=== PATIENT | male | born 1950 | race African-American/Black ===

== ENCOUNTER 2017-05-02 11:23 | Observation (INO) | payer OTHER ==
--- NOTE | 2017-05-01 12:20 | History and Physical ---
History & Physical Date May 01, 2017. Chief Complaint Enlarging right thyroid mass History of Present Illness The patient is a 67 year old male with complaints of progressively enlarging right thyroid mass to present 6 x 8 cm. 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 Additional History Hepatic Disease: No Endocrine Disorder: No Kidney Disease: No Hypertension: No Heart Disease: No Bleeding Tendencies: No Infectious Diseases: No Physical Examination Skin: warm/dry, no rash Eyes: normal inspection, EOMI, sclerae normal ENT: normal ENT inspection, pharynx normal Head: normocephalic, atraumatic Neck: + pertinent finding (large right thyroid mass of 6 x 8 cm) Respiratory/Chest: lungs clear, normal breath sounds, no respiratory distress Cardiovascular: regular rate, rhythm, no edema, no murmur Abdomen / GI: normal bowel sounds, non tender Back: normal inspection Extremities: normal inspection, normal range of motion Neurologic/Psych: no motor/sensory deficits, alert, normal reflexes, oriented x 3 Diagnosis Right thyroid mass Plan of Treatment Right thyroid lobectomy with isthmusectomy and frozen section with possible total thyroidectomy. The risks and implications including injury to the parathyroid gland and to the recurrent laryngeal nerve and to the vessels were explained to the patient, he understands these risk and other risks and desires to proceed with surgery thank you
[~2017-05-02] VITALS: Ht 175.3 cm; Wt 74.0 kg
[~2017-05-02 11:23] MED LIST: CEFAZOLIN 1000MG/55 ML D5W 55 ML IV SCH; CEFAZOLIN IV 2,000 MG/60 ML D5W IV SCH; LACTATED RINGER'S 1000ML 1,000 ML IV SCH
[2017-05-02] MEDS ORDERED: MIDAZOLAM HCL 1 MG/ML 2ML VIAL ONE (11:34)
[2017-05-02] MEDS ORDERED: ROCURONIUM BROMIDE 10 MG/ML 5 ML VIAL ONE (11:34)
[2017-05-02] MEDS ORDERED: DEXAMETHASONE SOD INJ 4 MG/ML VIAL ONE (11:34)
[2017-05-02] MEDS ORDERED: FENTANYL CITRATE INJ 50 MCG/1 ML 2 ML VIAL ONE (11:34)
[2017-05-02] MEDS ORDERED: ONDANSETRON INJ 2 MG/ML 2 ML VIAL ONE (11:34)
[2017-05-02] MEDS ORDERED: GLYCOPYRROLATE INJ 0.2 MG/ML VIAL ONE (11:34)
[2017-05-02] MEDS ORDERED: LIDOCAINE HCL 2% 2 ML VIAL (20MG/ML) ONE (11:34)
[2017-05-02] MEDS ORDERED: NEOSTIGMINE METHYLSULFATE 5 MG/5 ML SYR ONE (11:34)
[2017-05-02] MEDS ORDERED: PROPOFOL IV EMULSION 10 MG/ML 20 ML VIAL IV ONE (11:34)
[2017-05-02 11:39] VITALS: Ht 175.3 cm; Wt 74.0 kg
[2017-05-02] MEDS ORDERED: ATOR-24 PO (11:57)
[2017-05-02] MEDS ORDERED: TAMS0.4C38 PO (11:57)
[2017-05-02] MEDS ORDERED: ASPCH81X PO (11:57)
[2017-05-02] MEDS ORDERED: HYDROmorphone INJ 2 MG/ML SYR/VIAL IV PRN (12:30)
[2017-05-02] MEDS ORDERED: ONDANSETRON INJ 2 MG/ML 2 ML VIAL IV PRN ×2 (12:30→14:45)
[2017-05-02] MEDS ORDERED: KETOROLAC TROMETHAMINE 30 MG/ML VIAL IV. PRN (12:30)
[2017-05-02] MEDS ORDERED: ATROPINE SULFATE 0.1 MG/ML 5ML SYR IV PRN (12:30)
--- NOTE | 2017-05-02 12:30 | History & Physical Bridge Note ---
H&P Re-Evaluation Bridge Note: I have examined the patient, reviewed the History & Physical and in the interval since the performance of the History & Physical I have noted the following changes of clinical significance: No changes noted
[2017-05-02] MEDS ORDERED: BACITRACIN OINT 15 GM TUBE ONE (12:40)
[2017-05-02] MEDS ORDERED: LIDO 2%/EPINEPHRINE 1:100000 20 ML VIAL INFIL ONE (12:41)
[2017-05-02] MEDS ORDERED: EpHEDrine SULFATE 50MG/5ML SYR ONE (13:10)
[2017-05-02] MEDS ORDERED: LACTATED RINGER'S 1000ML 1,000 ML IV SCH (14:39)
[2017-05-02] MEDS ORDERED: OXYCODONE/ACETAMINOPHEN 5-325 TAB PO PRN (14:45)
--- NOTE | 2017-05-02 14:52 | [facility] Operative Report ---
Operative Report Operative Date May 02, 2017. Pre-Operative Diagnosis Right thyroid mass Post-Operative Diagnosis Right thyroid mass Procedure(s) Performed Right Thyroid Lobectomy and isthmusectomy Surgeon Bon[employer] Interpreter Surgeon(s) none Estimated Blood Loss 50cc Findings 8 cm centimeter right thyroid nodule and lobe. Specimens 1: Right thyroid lobe [place] Anesthesia Gen. endotracheal Complication(s) None Disposition Recovery Room / PACU Indications 67-year-old gentleman with a progressively enlarging right thyroid mass now reaching 8 cm needle biopsy showed Hurthle cells but could not rule out carcinoma Description of Procedure The patient was brought to the operating room placed in the supine position the neck was hyper-extended with the shoulder pillow. He was prepped with ChloraPrep and draped in the usual sterile manner for thyroidectomy. The incision with a routine thyroid incision. The incision line was injected with 2 % Xylocaine with 1 100,000 strength epinephrine. The incision was made using the #15 blade carried down through the skin and subcutaneous layer and then the platysma layer and then elevating the superior and inferior flaps in the subplatysmal layer. Midline dissection was performed the there are no clinoid and the sternohyoid muscles in the midline isolating the right lobe of the thyroid gland sharp dissection was performed around the thyroid a first dissecting around the superior pole freeing up the superior left thyroidal artery and the superior thyroidal veins preserving the superior thyroidal nerve. Middle thyroidal vein was encountered and controlled with the bipolar cautery and divided inferiorly the branches of the recurrent laryngeal nerve were identified going into the tracheoesophageal groove below the cricothyroid areas. The inferior thyroidal artery was found coursing below the recurrent laryngeal nerve this was followed to the thyroid gland preserving the major artery clamping and dividing the branches as it entered into the thyroid gland and controlling these vessels with bipolar cautery and with 2-0 silk ties. The suspensory ligament was then divided above the recurrent laryngeal nerve visualizing the recurrent laryngeal nerve that during the entire procedure and then the thyroid gland along with the 8 cm nodule from the right side of the trachea. In this manner the right lobe and isthmus was removed and sent for frozen section. Frozen section or showed follicular neoplasm without evidence of carcinoma favoring follicular adenoma. Therefore hemostasis was controlled using silk ties using the bipolar cautery and using the Bovie. The incision was then closed in layers with interrupted 3-0 Vicryl sutures on the platysma layer and then interrupted 4-0 Vicryl's on the subcutaneous subcutaneous layer and then skin alta on the skin a Eris drain was placed in to the right side of the trachea and sewn in place with a 2-0 silk suture. A light dressing was placed over the incision with bacitracin and 4 x 4 and Lusi the patient tolerated procedure well and was taken to recovery area in satisfactory condition. Thank you I attest to the content of the Intraoperative Record and any orders documented therein. Any exceptions are noted below.
[2017-05-02] MEDS ORDERED: MoRPHine SULFATE 4 MG/ML 1 ML CARP\\VIAL IV PRN (15:30)
[2017-05-02 15:40] VITALS: BP 138/78; PULSE 63; TEMP 36.6; O2SAT 100
--- NOTE | 2017-05-02 15:46 | Anesthesiology Progress Note ---
Anesthesia Post Op Note Date & Time May 02, 2017 at 15:45 Vital Signs Pain Intensity: 0 Vital Signs Past 12 Hours Date Time Temp Pulse Resp B/P (MAP) Pulse Ox O2 Delivery O2 Flow Rate FiO2 05/02/17 15:25 36.1 65 16 138/74 100 Nasal Cannula 2 05/02/17 15:15 36.1 61 16 131/76 100 Nasal Cannula 2 05/02/17 15:05 59 16 131/78 100 Oxymask 10 05/02/17 14:55 62 16 132/77 100 Oxymask 10 05/02/17 14:48 36.0 63 16 125/77 100 Oxymask 10 Notes Mental Status: alert / awake / arousable, participated in evaluation Pt Amnestic to Procedure: Yes Nausea / Vomiting: adequately controlled Pain: adequately controlled Airway Patency, RR, SpO2: stable & adequate BP & HR: stable & adequate Hydration State: stable & adequate Anesthetic Complications: no major complications apparent
[2017-05-02] MEDS ORDERED: IV FLUIDS COMPLETED PRN (16:00)
[2017-05-02 16:10] VITALS: BP 145/85; PULSE 71; TEMP 36.6; O2SAT 100
[2017-05-02 16:40] VITALS: BP 153/89; PULSE 68; TEMP 36.6; O2SAT 100
[2017-05-02 17:05] LABS: CALCIUM 8.8 mg/dl (8.5-10.1); MAGNESIUM 2.4 mg/dl (1.8-2.4)
[2017-05-02 17:09] LABS: PHOSPHORUS 2.6 mg/dl (2.5-4.9)
[2017-05-02 17:39] VITALS: BP 157/92; PULSE 67; TEMP 36.4; O2SAT 100
[2017-05-02 19:00] VITALS: BP 139/88; PULSE 79; TEMP 36.5; O2SAT 94
[2017-05-02] MEDS ORDERED: NURSING VERBAL MED ORDER ONE (22:15)
[2017-05-02 23:05] VITALS: BP 132/80; PULSE 83; TEMP 36.8; O2SAT 94
[2017-05-03] MEDS ORDERED: SULF800T23 PO (01:00)
[2017-05-03 03:15] VITALS: BP 126/79; PULSE 75; TEMP 36.6; O2SAT 95
[2017-05-03 07:29] VITALS: BP 132/82; PULSE 66; TEMP 36.6; O2SAT 95
[2017-05-03] MEDS ORDERED: PNEUMOCOCCAL POLYSACCHARIDES 25 MCG/0.5 ML VIAL/SYR IM. ONE (08:00)
[2017-05-03] MEDS ORDERED: PNEUMOCOCCAL ADMINISTRATION CHARGE ONE (08:00)
[2017-05-03] MEDS ORDERED: CEPH500C2 PO (10:12)
[2017-05-03] MEDS ORDERED: OXYC-57 PO (10:12)
--- NOTE | 2017-05-03 10:18 | Discharge Instructions ---
Discharge Instructions Date of Service May 03, 2017. Admission Reason for Admission: Right Thyroid Mass Discharge Discharge Diagnosis / Problem: same Discharge Goals Goal(s): Diagnostic testing Activity Recommendations Activity Limitations: per Instructions/Follow-up section . Instructions / Follow-Up Instructions / Follow-Up ACTIVITY: [facility] danny drain Friday if bleeding has diminished. Call me if still bleeding Please remove alta/suture in 10 days. Recheck thyroid functions is 6 weeks, consult Endocrinology if abnormal. Frozen showed benign follicular adenoma. If this changes, he will need to be reevaluated for further Rx. Most patients are able to return to a full-time work schedule in 1 week; however this may vary according to your job. It may take longer to return to heavy physical or other demanding work, or shorter if you are feeling well. Do NOT drive a car until you are able to turn the neck side to side, which may take 1-[address] you are taking pain medicines. DIET: You may have temporary throat discomfort or difficulty swallowing. This is due to the surgery around your larynx (voice box) and esophagus (swallowing tube). These symptoms will gradually improve over the course of several weeks. Drink and eat foods that can be swallowed easily, e.g. juice, soup, gelatin, applesauce, scrambled eggs or mashed potatoes. You may be able to return to your usual diet in a couple of days. INCISION CARE: You may shower 24 hours after surgery but please do not swim or soak in a tub for at least 2 weeks. After you are done showering, just pat your incision dry. If it is draining clear fluid, you can cover it with a dry dressing (such as gauze). Do NOT scrub with soap or washcloth for the first 10 days. Mild swelling at the incision site will go away in 4-6 weeks. The pink line will slowly fade to white during the next 6-12 months. Use a sunscreen (SPF#30 or higher) or wear a scarf for protection if in the sun for the first 6 months to a year as the sun can darken your scar. You may begin to use a hypoallergenic moisturizing cream (no vitamin E, Mederma , or other scar creams) along the incision after 2 weeks. COMMON PROBLEMS: Numbness of the skin under the chin or above the incision is normal and should go away in a few weeks. You may feel a lump or pressure in your throat sensation when swallowing for a few days. Your incision may feel itchy while it heals. Avoid rubbing or scratching if possible. You may feel neck stiffness, tightness or a pulling feeling. Some people prefer to sleep with an extra pillow for the first few days after the surgery, this helps keep swelling around your incision to a minimum. Your voice may be hoarse or weak. Pitch or tone may change. You may have difficulty singing. This usually goes back to normal over 6 weeks to 6 months. After surgery, you may notice a change in your mood, emotional ups and downs, depression, irritability or fatigue and weakness. These changes will get better as time passes. You do not need to be at bed rest, being active is normally well tolerated within reason. CALL YOUR DOCTOR IF: For any non-urgent questions, call Dr. Galaviz office [phone] or the nursing unit where you were a patient. Call Dr. Crystal [phone] or go to the Emergency Room if you have fever ( temperature greater than 100.5), chills, lightheadedness, shortness of breath, difficulty breathing, nausea, vomiting, numbness or tingling in your fingers, hands, or mouth, muscle spasms, or if you notice signs of wound infection ( redness, tenderness, or drainage from the incision). Please also call or go to the Emergency Room if you have any other urgent concerns. FOLLOW UP VISIT: Follow-up visit with Dr. Crystal. Please call to schedule if not already scheduled. Current Hospital Diet Patient's current hospital diet: Regular Diet Discharge Diet Recommended Diet: Regular Diet Procedures Procedures Performed: Right Thyroid Lobectomy and isthmusectomy Pending Studies Studies pending at discharge: no Medical Emergencies . Who to Call and When: Medical Emergencies: If at any time you feel your situation is an emergency, please call [phone] immediately. . Non-Emergent Contact Non-Emergency issues call your: Primary Care Provider . "Provider Documentation" section prepared by Rubia Crystal. . VTE Core Measure Inpt VTE Proph given/why not?: SCD's, Treatment not indicated [place] Drug Monitoring Program Search Results: no issues identified
--- NOTE | 2017-05-03 10:22 | Discharge Summary ---
Discharge Summary Date of Service May 03, 2017. Admission Date/Reason May 02, 2017 at 14:44 Right Thyroid Mass. 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 Hospital Course Right thyroidectomy performed without complications. Discharge Instructions Please refer to the electronic Patient Visit Report (Discharge Instructions) for additional information. Additional Copies To Ashley Hartmann M.D.
[2017-05-03 10:30] VITALS: BP 132/82; PULSE 66; TEMP 36.6; O2SAT 95
[2017-06-26] MEDS ORDERED: DOCU-94 PO (14:58)
== END 2017-05-03 11:34 | disposition home or self-care (01) ==
LOC: C.ACU 11:23 → C.MSW 14:44 → ENRESERV 15:21
PROVIDERS: ADMIT Otolaryngology; ATTEND Otolaryngology
DX: D34 Benign neoplasm of thyroid gland (principal); Z79.82 Long term (current) use of aspirin; Z79.899 Other long term (current) drug therapy

== ENCOUNTER 2017-05-07 00:04 | Emergency (ER) | payer OTHER ==
[~2017-05-07] VITALS: Ht 175.3 cm; Wt 72.2 kg
[~2017-05-07 00:04] MED LIST changes: +ASPCH81X PO; +ATOR-24 PO; -CEFAZOLIN 1000MG/55 ML D5W 55 ML IV SCH; -CEFAZOLIN IV 2,000 MG/60 ML D5W IV SCH; +CEPH500C2 PO; -LACTATED RINGER'S 1000ML 1,000 ML IV SCH; +OXYC-57 PO; +SULF800T23 PO; +TAMS0.4C38 PO
[2017-05-07 00:18] VITALS: TEMP 36.8; Ht 175.3 cm; Wt 72.2 kg
[2017-05-07] MEDS ORDERED: ACET-749 PO (01:00)
[2017-05-07 01:12] LABS: URINE APPEARANCE CLEAR (CLEAR); URINE BILIRUBIN NEG (NEG); URINE COLOR YELLOW; URINE NITRITE NEG (NEG); URINE SPECIFIC GRAVITY 1.008 (1.000-1.030); UROBILINOGEN NEG (NEG); ZZURINE CULT IF INDIC CATH NO
[2017-05-07 01:28] LABS: MANUAL MICROSCOPIC REQUIRED? NO; REVIEW REQ? NO
[2017-05-07 01:52] VITALS: BP 124/79; PULSE 82; O2SAT 98
--- NOTE | 2017-05-07 02:00 | EMERGENCY ROOM VISIT NOTE ---
History First contact with patient: 00:41 Chief Complaint: URINARY SYMPTOMS Stated Complaint: BLOOD IN URINE History of Present Illness The patient is a 67 year old male who presents to the Emergency Room with complaints of difficulty with Urrutia draining that is now resolved that currently has a little bit of blood in it. Patient states he has no current medical complaints and [facility]. He does not have a urologist. He had thyroid surgery last week for a mass that was removed. He had urinary retention from this and a Urrutia catheter was placed then removed and then replaced as he had retention again. Patient denies chest pain, dyspnea , abdominal pain, penile pain, testicular pain, back pain or any other medical concerns. Review of Systems See HPI for pertinent positives & negatives. A total of 10 systems reviewed and were otherwise negative. Past Medical/Surgical History Medical Problems: (1) Thyroid adenoma Social History Smoking Status: Never Smoker Current/Historical Medications Scheduled Aspirin (Aspirin Chewable), 81 MG PO DAILY Atorvastatin (Lipitor), 40 MG PO HS Sulfa/Trimethoprim (Bactrim Ds 800MG/160MG), 1 TAB PO BID Tamsulosin Hcl (Flomax), 0.4 MG PO DAILY Scheduled PRN Acetaminophen/Codeine (Tylenol W/Codeine #3), 2 TAB PO QID PRN for Pain Allergies Coded Allergies: No Known Allergies (Unverified , 05/07/17) PER PRE ANESTHESIA QUESTIONNAIRE Physical Exam Vital Signs Date Time Temp Pulse Resp B/P (MAP) Pulse Ox O2 Delivery O2 Flow Rate FiO2 05/07/17 01:52 82 20 124/79 98 05/07/17 00:18 36.8 71 19 114/81 95 Room Air Pain Rating (0-10): 0 Physical Exam VITALS: Vitals are noted on the nurse's note and reviewed by myself. Vital signs stable. GENERAL: Pleasant male, in no acute distress, nondiaphoretic, well-developed well-nourished. SKIN: Capillary reflex less than 2 seconds. HEENT: Normocephalic. PERRLA. EOMI. Nares patent. Mucous membranes moist. Neck is supple without nuchal rigidity. HEART: Regular rate and rhythm without murmurs gallops or rubs. LUNGS: Clear to auscultation bilaterally without wheezes, rales or rhonchi. No retractions or accessory muscle use. ABDOMEN: Positive bowel sounds x 4. Normal tympanic percussion. Soft, nontender, without masses or organomegaly. Hernandez sign negative. No guarding or rebound tenderness. No CVA tenderness Exam: Urrutia catheter draining without difficulties. MUSCULOSKELETAL: No gross musculoskeletal defects. No pedal edema. NEURO: Patient was alert and oriented to person place and time. Normal sensation to light and sharp touch. No focal neurological deficits. Medical Decision & Procedures Laboratory Results Test 05/07/17 00:37 Urine Color YELLOW Urine Appearance CLEAR (CLEAR) Urine pH 6.0 (4.5-7.5) Urine Specific [place] 1.008 (1.000-1.030) Urine Protein 2+ (NEG) Urine Glucose (UA) NEG (NEG) Urine Ketones NEG (NEG) Urine Occult Blood 3+ (NEG) Urine Nitrite NEG (NEG) Urine Bilirubin NEG (NEG) Urine Urobilinogen NEG (NEG) Urine Leukocyte Esterase TRACE (NEG) Urine WBC (Auto) 1-5 /hpf (0-5) Urine RBC (Auto) >30 /hpf (0-4) Urine Hyaline Casts (Auto) 1-5 /lpf (0-5) Urine Epithelial Cells (Auto) 5-10 /lpf (0-5) Urine Bacteria (Auto) NEG (NEG) ED Course Prior records reviewed and summarized as above. Triage Nursing notes reviewed. Additional history obtained from correction officers. The patient's history was concerning for problems with Urrutia catheter Differential diagnosis: Etiologies such as Urrutia catheter complication, bladder polyp, urinary retention, UTI, renal colic as well as others were entertained.. Physical examination: As above ER treatment provided: Patient was observed On reassessment the patient felt better. Diagnostics interpreted by me: The labs revealed hematuria Bladder scan showed 74 mL's per nursing This appears to be isolated hematuria most likely from Urrutia catheter was recently placed today. Patient had no complaints and requested to leave. I felt this is reasonable. He is advised to follow-up urology for his urinary retention and his enlarged prostate and hematuria. [facility] was advised to the [facility] doctor for this and was given a referral to Urology rn radiation. He was advised to return to the ER immediately for problems with Urrutia catheter, fevers , pain, worsening signs or symptoms or as needed. By the evaluation outlined above emergent etiologies such as urinary obstruction , UTI, as well as others were deemed relatively unlikely. The pt informed about the findings as listed above. All questions were answered and pleased with the treatment. Return instructions were outlined and the patient was discharged in stable condition. Referral: The patient was referred back to urology and primary care physician for follow- up in 2 to 3 days for a recheck of the current condition. Medical Decision As above Impression Primary Impression: Hematuria Departure Information Dispostion Home / Self-Care Condition GOOD Referrals Delbert Talley M.D. Forms HOME CARE DOCUMENTATION FORM, IMPORTANT VISIT INFORMATION Patient Instructions [facility] Additional Instructions Follow-up with urology for Urrutia catheter and for blood in urine. See the [facility] doctor for the referral to the urologist. Return to ER sooner for heavy bleeding, problems with Urrutia catheter, pain, worsening signs or symptoms or as needed. Problem Qualifiers Primary Impression: Hematuria Hematuria type: unspecified type Qualified Codes: R31.9 - Hematuria, unspecified
[2017-06-26] MEDS ORDERED: DOCU-94 PO (14:58)
[2017-06-28] MEDS ORDERED: OXYC-57 PO (09:04)
[2017-06-28] MEDS ORDERED: CEPH500C2 PO (09:04)
== END 2017-05-07 01:53 | disposition home or self-care (01) ==
LOC: C.EDB 00:05 → C.EDC 01:53
DX: R31.9 Hematuria, unspecified (principal); Z86.018 Personal history of other benign neoplasm; Z79.82 Long term (current) use of aspirin; Z79.899 Other long term (current) drug therapy

== ENCOUNTER 2017-06-27 05:32 | Observation (INO) | payer OTHER ==
[2017-06-26 14:43] VITALS: BMI 23.0
[~2017-06-27] VITALS: Ht 175.3 cm; Wt 71.4 kg
[2017-06-27] VITALS (12 sets, daily range): BP systolic 136–168; BP diastolic 76–93; PULSE 57–76; TEMP 36.4–37.1; O2SAT 94–98; Ht 175.3 cm; Wt 71.4 kg
[~2017-06-27 05:32] MED LIST changes: -CEPH500C2 PO; +DOCU-94 PO; -OXYC-57 PO; -SULF800T23 PO
[2017-06-27] MEDS ORDERED: LACTATED RINGER'S 1000ML 1,000 ML IV SCH ×2 (06:00→10:36)
[2017-06-27] MEDS ORDERED: FENTANYL CITRATE INJ 50 MCG/1 ML 2 ML VIAL ONE (06:58)
[2017-06-27] MEDS ORDERED: MIDAZOLAM HCL 1 MG/ML 2ML VIAL ONE (06:58)
[2017-06-27] MEDS ORDERED: LARYING-O-JET KIT (LTA) ONE ×2 (06:59)
[2017-06-27] MEDS ORDERED: LIDOCAINE HCL 2% 2 ML VIAL (20MG/ML) ONE (06:59)
[2017-06-27] MEDS ORDERED: CISATRACURIUM BESYLATE IV SOLN 2 MG/ML 10 ML VIAL ONE (06:59)
[2017-06-27] MEDS ORDERED: PROPOFOL IV EMULSION 10 MG/ML 20 ML VIAL IV ONE (06:59)
[2017-06-27] MEDS ORDERED: DEXAMETHASONE SOD INJ 4 MG/ML VIAL ONE (06:59)
[2017-06-27] MEDS ORDERED: NEOSTIGMINE METHYLSULFATE 5 MG/5 ML SYR ONE (06:59)
[2017-06-27] MEDS ORDERED: ONDANSETRON INJ 2 MG/ML 2 ML VIAL ONE (06:59)
[2017-06-27] MEDS ORDERED: GLYCOPYRROLATE INJ 0.2 MG/ML VIAL ONE (06:59)
[2017-06-27] MEDS ORDERED: BACITRACIN OINT 15 GM TUBE ONE (07:01)
[2017-06-27] MEDS ORDERED: LIDO 2%/EPINEPHRINE 1:100000 20 ML VIAL INFIL ONE (07:01)
--- NOTE | 2017-06-27 07:10 | History and Physical ---
History & Physical Date Jun 27, 2017. 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 Additional History Hepatic Disease: No Endocrine Disorder: Yes Kidney Disease: No Hypertension: No Heart Disease: No Bleeding Tendencies: No Infectious Diseases: No Allergies Coded Allergies: No Known Allergies (Unverified , 06/27/17) PER PRE ANESTHESIA QUESTIONNAIRE Home Medications Scheduled Aspirin (Aspirin Chewable), 81 MG PO QAM Atorvastatin (Lipitor), 40 MG PO HS Docusate Sodium (Colace), 1 CAP PO TID Tamsulosin Hcl (Flomax), 0.4 MG PO HS Physical Examination Skin: warm/dry, no rash Eyes: normal inspection, EOMI, sclerae normal ENT: normal ENT inspection, pharynx normal Head: normocephalic, atraumatic Neck: supple, no adenopathy, trachea midline Respiratory/Chest: lungs clear, normal breath sounds, no respiratory distress Cardiovascular: regular rate, rhythm, no edema, no murmur Abdomen / GI: normal bowel sounds, non tender Back: normal inspection Extremities: normal inspection, normal range of motion Neurologic/Psych: no motor/sensory deficits, alert, normal reflexes, oriented x 3 Diagnosis follicular Carcinoma of thyroid, right lobe Plan of Treatment completion thyroid dectomy,
[2017-06-27] MEDS: CEFAZOLIN 1000MG/55 ML D5W IV SCH ×2 (07:34→09:55)
[2017-06-27] MEDS ORDERED: EpHEDrine SULFATE 50MG/5ML SYR ONE (08:11)
[2017-06-27] MEDS ORDERED: LABETALOL HCL IV 5 MG/ML 20ML IV PRN (09:15)
[2017-06-27] MEDS ORDERED: PROMETHAZINE HCL INJ 12.5 MG in SODIUM CHLORIDE 0.9% 50ML 50 ML IV PRN (09:15)
[2017-06-27] MEDS ORDERED: ATROPINE SULFATE 0.1 MG/ML 5ML SYR IV PRN (09:15)
[2017-06-27] MEDS ORDERED: FLUMAZENIL 0.1 MG/1 ML 10 ML VIAL IV PRN (09:15)
[2017-06-27] MEDS ORDERED: HYDROmorphone INJ 1 MG/ML SYR IV PRN (09:15)
[2017-06-27] MEDS ORDERED: EpHEDrine SULFATE INJ 50 MG/ML AMP IV PRN (09:15)
[2017-06-27] MEDS ORDERED: ONDANSETRON INJ 2 MG/ML 2 ML VIAL IV PRN ×2 (09:15→10:45)
[2017-06-27] MEDS ORDERED: NALOXONE HCL 0.4 MG/1 ML VIAL/CARP IV PRN (09:15)
[2017-06-27] MEDS ORDERED: ARISTA ABSORBABLE HEMOSTAT 3GM TOP ONE (09:45)
--- NOTE | 2017-06-27 10:36 | [facility] Operative Report ---
Operative Report Operative Date Jun 27, 2017. Pre-Operative Diagnosis Follicular Carcinoma of thyroid, right lobe Post-Operative Diagnosis Same as preoperative diagnosis Procedure(s) Performed Total Thyroidectomy Surgeon Dr. Rubia Crystal Reliability Technicians Surgeon(s) None Estimated Blood Loss 50 mL Findings Small left lobe with no palpable adenopathy Specimens Permanent specimens A. Left thyroid lobe Drains Eris Anesthesia Gen. endotracheal Complication(s) None None Disposition Recovery Room / PACU Indications 67-year-old male with follicular carcinoma of the right lobe of the thyroid here for completion of total thyroidectomy Description of Procedure The patient was brought to the operating room and placed in the supine position he was prepped with ChloraPrep and draped in the usual sterile manner. The incision followed the previous thyroidectomy incision. This was injected with 1 % Xylocaine with 1 100,000 strength epinephrine. The incision was made using the #15 blade extending the incision to the left side carrying the incision down through the subcutaneous layer and through the scar tissue elevating superior and inferior flaps through the scar tissue over the sternocleidomastoid muscle and the midline strap muscles. Midline dissection was performed the strap muscles elevating the sternohyoid and sternothyroid on both sides finding no nodes on the right side that are palpable then turning to the left side of the neck for the completion thyroidectomy. The left lobe was elevated by dissecting the inferior pole isolating the inferior thyroidal artery which was clamped with right angle clamps divided and tied with silk ties the other inferior thyroidal vessels were controlled using the bipolar cautery. The middle thyroidal vein was also controlled using the bipolar cautery. Superior thyroidal vessels were clamped and divided with hemostats and divided and then tied with silk ties. The dissection was continued along the capsule of the thyroid reflecting the soft tissue along with the parathyroid glands and then finding the recurrent laryngeal nerve deep in the tracheal esophageal groove and then following this nerve superiorly until it entered the hypothyroid membrane area. At this point the suspensory ligament was divided protecting the nerve and the entire thyroid gland was removed and sent to pathology.. Further hemostasis was controlled using the bipolar cautery and also using silk ties for a small vessel just superior and inferior to the recurrent laryngeal nerve. The recurrent laryngeal nerve was noted to be intact at the end of the procedure as were the parathyroids. A medium Eris drain was placed. The strap muscles were approximated in the midline with a 3-0 Vicryl suture. The platysma layer was closed with interrupted 3-0 chromic sutures. The subcutaneous layer was closed with 3-0 chromic sutures. The skin was closed with skin alta. The Eris drain was sewn in place with a 2-0 nylon suture. A [place] dressing was placed. The patient her procedure well was taken to recovery area in satisfactory condition. I attest to the content of the Intraoperative Record and any orders documented therein. Any exceptions are noted below.
[2017-06-27] MEDS ORDERED: HYDROCODONE/ACETAMOPHEN 5/325MG TAB PO PRN (10:45)
--- NOTE | 2017-06-27 11:03 | Anesthesiology Progress Note ---
Anesthesia Post Op Note Date & Time Jun 27, 2017 at 11:03 Vital Signs Pain Intensity: 2 Vital Signs Past 12 Hours Date Time Temp Pulse Resp B/P (MAP) Pulse Ox O2 Delivery O2 Flow Rate FiO2 06/27/17 10:55 58 15 152/90 100 Nasal Cannula 2 06/27/17 10:45 62 12 145/85 100 Mask 10 06/27/17 10:35 63 13 147/85 100 Mask 10 06/27/17 10:27 36.5 63 12 129/79 100 Mask 10 06/27/17 05:45 36.8 59 18 163/90 (114) 95 Room Air Notes Mental Status: alert / awake / arousable, participated in evaluation Pt Amnestic to Procedure: Yes Nausea / Vomiting: adequately controlled Pain: adequately controlled Airway Patency, RR, SpO2: stable & adequate BP & HR: stable & adequate Hydration State: stable & adequate Anesthetic Complications: no major complications apparent
[2017-06-27 11:41] LABS: CALCIUM 8.5 mg/dl (8.5-10.1)
[2017-06-27 11:45] LABS: MAGNESIUM 2.1 mg/dl (1.8-2.4); PHOSPHORUS 2.9 mg/dl (2.5-4.9)
[2017-06-27] MEDS ORDERED: IV FLUIDS COMPLETED PRN (12:00)
[2017-06-27] MEDS ORDERED: NURSING VERBAL MED ORDER ONE ×2 (22:00→23:30)
[2017-06-28 03:48] VITALS: BP 147/84; PULSE 66; TEMP 36.4; O2SAT 94; O2SAT 97
[2017-06-28] MEDS ORDERED: CEFAZOLIN IV 1,000 MG in DEXTROSE 5% 50ML 50 ML IV SCH (06:00)
[2017-06-28 07:19] VITALS: BP 150/82; PULSE 59; TEMP 37; O2SAT 95
[2017-06-28 08:15] VITALS: O2SAT 95
[2017-06-28] MEDS ORDERED: TAMSULOSIN HCL 0.4 MG CAP PO SCH ×2 (09:00→21:00)
[2017-06-28] MEDS ORDERED: CEPH500C2 PO (09:04)
[2017-06-28] MEDS ORDERED: OXYC-57 PO (09:04)
--- NOTE | 2017-06-28 09:10 | Discharge Instructions ---
Discharge Instructions Date of Service Jun 28, 2017. Admission Reason for Admission: Follicular Carcinoma Discharge Discharge Diagnosis / Problem: same Discharge Goals Goal(s): Therapeutic intervention Activity Recommendations Activity Limitations: per Instructions/Follow-up section ACTIVITY: Most patients are able to return to a full-time work schedule in 1 week; however this may vary according to your job. It may take longer to return to heavy physical or other demanding work, or shorter if you are feeling well. Do NOT drive a car until you are able to turn the neck side to side, which may take 1-[address] you are taking pain medicines. DIET: You may have temporary throat discomfort or difficulty swallowing. This is due to the surgery around your larynx (voice box) and esophagus (swallowing tube). These symptoms will gradually improve over the course of several weeks. Drink and eat foods that can be swallowed easily, e.g. juice, soup, gelatin, applesauce, scrambled eggs or mashed potatoes. You may be able to return to your usual diet in a couple of days. INCISION CARE: You may shower 24 hours after surgery but please do not swim or soak in a tub for at least 2 weeks. After you are done showering, just pat your incision dry. If it is draining clear fluid, you can cover it with a dry dressing (such as gauze). Do NOT scrub with soap or washcloth for the first 10 days. Mild swelling at the incision site will go away in 4-6 weeks. The pink line will slowly fade to white during the next 6-12 months. Use a sunscreen (SPF#30 or higher) or wear a scarf for protection if in the sun for the first 6 months to a year as the sun can darken your scar. You may begin to use a hypoallergenic moisturizing cream (no vitamin E, Mederma , or other scar creams) along the incision after 2 weeks. COMMON PROBLEMS: Numbness of the skin under the chin or above the incision is normal and should go away in a few weeks. You may feel a lump or pressure in your throat sensation when swallowing for a few days. Your incision may feel itchy while it heals. Avoid rubbing or scratching if possible. You may feel neck stiffness, tightness or a pulling feeling. Some people prefer to sleep with an extra pillow for the first few days after the surgery, this helps keep swelling around your incision to a minimum. Your voice may be hoarse or weak. Pitch or tone may change. You may have difficulty singing. This usually goes back to normal over 6 weeks to 6 months. After surgery, you may notice a change in your mood, emotional ups and downs, depression, irritability or fatigue and weakness. These changes will get better as time passes. You do not need to be at bed rest, being active is normally well tolerated within reason. CALL YOUR DOCTOR IF: For any non-urgent questions, call Dr. Galaviz office [phone] or the nursing unit where you were a patient. Call Dr. Crystal [phone] or go to the Emergency Room if you have fever ( temperature greater than 100.5), chills, lightheadedness, shortness of breath, difficulty breathing, nausea, vomiting, numbness or tingling in your fingers, hands, or mouth, muscle spasms, or if you notice signs of wound infection ( redness, tenderness, or drainage from the incision). Please also call or go to the Emergency Room if you have any other urgent concerns. FOLLOW UP VISIT: Follow-up visit with Dr. Crystal. Please call to schedule if not already scheduled. . Instructions / Follow-Up Instructions / Follow-Up ACTIVITY: Most patients are able to return to a full-time work schedule in 1 week; however this may vary according to your job. It may take longer to return to heavy physical or other demanding work, or shorter if you are feeling well. Do NOT drive a car until you are able to turn the neck side to side, which may take 1-[address] you are taking pain medicines. DIET: You may have temporary throat discomfort or difficulty swallowing. This is due to the surgery around your larynx (voice box) and esophagus (swallowing tube). These symptoms will gradually improve over the course of several weeks. Drink and eat foods that can be swallowed easily, e.g. juice, soup, gelatin, applesauce, scrambled eggs or mashed potatoes. You may be able to return to your usual diet in a couple of days. INCISION CARE: You may shower 24 hours after surgery but please do not swim or soak in a tub for at least 2 weeks. After you are done showering, just pat your incision dry. If it is draining clear fluid, you can cover it with a dry dressing (such as gauze). Do NOT scrub with soap or washcloth for the first 10 days. Mild swelling at the incision site will go away in 4-6 weeks. The pink line will slowly fade to white during the next 6-12 months. Use a sunscreen (SPF#30 or higher) or wear a scarf for protection if in the sun for the first 6 months to a year as the sun can darken your scar. You may begin to use a hypoallergenic moisturizing cream (no vitamin E, Mederma , or other scar creams) along the incision after 2 weeks. COMMON PROBLEMS: Numbness of the skin under the chin or above the incision is normal and should go away in a few weeks. You may feel a lump or pressure in your throat sensation when swallowing for a few days. Your incision may feel itchy while it heals. Avoid rubbing or scratching if possible. You may feel neck stiffness, tightness or a pulling feeling. Some people prefer to sleep with an extra pillow for the first few days after the surgery, this helps keep swelling around your incision to a minimum. Your voice may be hoarse or weak. Pitch or tone may change. You may have difficulty singing. This usually goes back to normal over 6 weeks to 6 months. After surgery, you may notice a change in your mood, emotional ups and downs, depression, irritability or fatigue and weakness. These changes will get better as time passes. You do not need to be at bed rest, being active is normally well tolerated within reason. CALL YOUR DOCTOR IF: For any non-urgent questions, FOLLOW UP VISIT: please place in [facility] until drain is removed remove drain Friday or Friday depending on amount of drainage please remove alta in 10 days Please arrange for follow-up with me in 1 month please arrange for radiation therapy consult for radioactive iodine treatment for the follicular carcinoma with [id number] May restart thyroid hormone replacement after clearance from radiation therapy Follow-up visit with Dr. Crystal. Please call to schedule if not already scheduled. Current Hospital Diet Patient's current hospital diet: Regular Diet Discharge Diet Recommended Diet: Regular Diet Procedures Procedures Performed: Total Thyroidectomy Pending Studies Studies pending at discharge: yes List of pending studies: Pathology Medical Emergencies . Who to Call and When: Medical Emergencies: If at any time you feel your situation is an emergency, please call 911 immediately. . Non-Emergent Contact Non-Emergency issues call your: Primary Care Provider . "Provider Documentation" section prepared by Rubia Crystal. . VTE Core Measure Inpt VTE Proph given/why not?: SCD's [place] Drug Monitoring Program Search Results: no issues identified
--- NOTE | 2017-06-28 09:16 | Discharge Summary ---
Discharge Summary Date of Service Jun 28, 2017. Admission Date/Reason Jun 27, 2017 at 10:41 Follicular Carcinoma. Discharge Date/Disposition Jun 28, 2017 [facility] facility Diagnosis Principal Diagnosis: Follicular carcinoma Procedure(s) Performed Completion total thyroidectomy Consultations None Medication Reconciliation New Medications: Cephalexin Monohydrate (Keflex) 500 Mg Cap 500 MG PO TID, #15 CAP Oxycodone/Acetaminophen 5MG/325MG (Percocet 5MG/325MG) Tab 1-2 TABLETS PO Q4H PRN for Pain, #60 TAB Continued Medications: Aspirin (Aspirin Chewable) 81 Mg Chew 81 MG PO QAM Atorvastatin (Lipitor) 40 Mg Tab 40 MG PO HS, 3 Refills Docusate Sodium (Colace) 100 Mg Cap 1 CAP PO TID for 30 Days, #90 CAP Tamsulosin Hcl (Flomax) 0.4 Mg Cap 0.4 MG PO HS, 5 Refills Admission Physical Exam As per Admitting History & Physical. And discharge summary Hospital Course The patient was taken to the operating room on the day of admission where he underwent completion total thyroidectomy removing the left lobe and exploring the right neck. Postoperatively he did well his calcium and phosphorus and magnesium were normal. He had no hoarseness. He was able to tolerate a regular diet the morning after surgery and is being [facility]. Discharge Instructions Please refer to the electronic Patient Visit Report (Discharge Instructions) for additional information. Additional Copies To Ashley Hartmann M.D.
[2017-06-28 10:40] VITALS: BP 150/82; PULSE 59; TEMP 37; O2SAT 95
== END 2017-06-28 16:00 ==
LOC: C.ACU 05:32 → C.MSW 10:41 → ENRESERV 10:51
PROVIDERS: ADMIT Otolaryngology; ATTEND Otolaryngology
DX: C73 Malignant neoplasm of thyroid gland (principal); Z79.82 Long term (current) use of aspirin; Z79.899 Other long term (current) drug therapy